=== PATIENT | female | born 1975 | race Two or more races ===

== ENCOUNTER 2016-12-05 04:25 | Emergency (ER) | payer OTHER ==
[~2016-12-05] VITALS: Ht 160 cm; Wt 61.2 kg
[2016-12-05 04:34] VITALS: BP 130/105
--- NOTE | 2016-12-05 04:35 | NUR ---
PT BB RA FROM HOME PT C/O GENERALIZED BODY PAIN, LAST TOOK EXCEDRIN 1 HR COOK PICKLED MEAT. PT AOX4 RR EVEN AND UNLABORED. NO SOB NOTED. NAD NOTED. NO NVD AT THIS TIME. PT PLACED ON MONITOR WAITING FOR MD ARRIAGA. PT NOTED WITH BUMP ON RIGHT FA. PT STATES SHE HAS HX OF MRSA.
--- NOTE | 2016-12-05 04:37 | NUR ---
DR. SMITH AT BEDSIDE FOR EVAL.
== END 2016-12-05 04:49 | disposition home or self-care (01) ==
LOC: ER 04:26
DX: L02.413 Cutaneous abscess of right upper limb (principal); I10 Essential (primary) hypertension
CPT/HCPCS: 99283; A4606; Z7610

== ENCOUNTER 2017-03-27 14:21 | Inpatient (IN) | payer OTHER ==
[~2017-03-27] VITALS: Ht 162.6 cm; Wt 60.8 kg
--- NOTE | 2017-03-27 14:40 | NUR ---
BIB RA, MOM CALLED 911, UNABLE TO AROUSE HER,UNK TABLETS SCATTERED AROUND HER BED, LETHARGIC, NAD NOTED, VSS, PUT ON HOSPITAL GOWN, AND MONITOR. MD AT BEDSIDE FOR BART
--- NOTE | 2017-03-27 14:41 | NUR ---
URINE COLLECTED. SENT TO LAB
[2017-03-27 14:56] LABS: APPEARANCE,URINE Clear (CLEAR); BILIRUBIN,URINE Negative (NEGATIVE); BLOOD, URINE Negative Ery/uL (NEGATIVE); COLOR,URINE Light yellow (YELLOW); KETONES,URINE Negative (NEGATIVE); LEUKOCYTE ESTERASE ,URINE Negative (NEGATIVE); NITRITE, URINE Negative (NEGATIVE); PH,URINE 5.5 (5.0-8.0); PROTEIN,URINE Negative (NEGATIVE); UGLUCOSE Negative (NEGATIVE); UROBILINOGEN,URINE 0.2 EU/dL (0.2)
[2017-03-27 14:57] LABS: HEMATOCRIT 44 % (33-45); HEMOGLOBIN 14.3 g/dL (11.5-14.8)
[2017-03-27 14:59] LABS: BASOPHILS # (AUTO) 0.1 /CMM (0.0-0.2); BASOPHILS % (AUTO) 1.1 % (0.0-2.0); EOSINOPHILS # (AUTO) 0.2 /CMM (0.0-0.7); EOSINOPHILS % (AUTO) 2.3 % (0.0-6.0); LYMPHOCYTES # (AUTO) 1.9 /CMM (0.8-4.8); LYMPHOCYTES % (AUTO) 25.5 % (20.0-44.0); MEAN CORPUSCULAR HEMOGLOBIN 27 PG (26.0-33.0); MEAN CORPUSCULAR HGB CONC 33 g/dl (31.0-36.0); MEAN CORPUSCULAR VOLUME 82 fL (82-100); MONOCYTES # (AUTO) 0.5 /CMM (0.1-1.30); MONOCYTES % (AUTO) 6.5 % (2.0-12.0); NEUTROPHILS # (AUTO) 4.9 /CMM (1.8-8.9); NEUTROPHILS % (AUTO) 64.6 % (43.0-81.0); PLATELET COUNT (AUTO) 484 /CMM (150-450); RDW COEFFICIENT OF VARIATION 13.9 (11.5-15.0); RED BLOOD CELL COUNT(AUTO) 5.32 MIL/uL (4.0-5.2); WHITE BLOOD COUNT (AUTO) 7.6 K/uL (4.3-11.0)
[2017-03-27 15:07] LABS: CALCIUM, SERUM 9.1 mg/dL (8.5-10.1); CARBON DIOXIDE 26 mmol/L (21-32); CHLORIDE 101 mmol/L (98-107); CREATININE 0.7 mg/dL (0.6-1.3); GLUCOSE 77 mg/dL (74-106); POTASSIUM 3.2 mmol/L (3.5-5.1); SODIUM SERUM 139 mmol/L (136-145); UREA NITROGEN, BLOOD 10 mg/dL (7-18)
[2017-03-27 15:21] LABS: ALANINE AMINOTRANSFERASE 18 U/L (12-78); ALBUMIN 4.4 g/dL (3.4-5.0); ALCOHOL, BLOOD < 3 mg/dL (0-0); ALKALINE PHOSPHATASE 102 U/L (46-116); ASPARTATE AMINOTRANSFERASE 22 U/L (15-37); BILIRUBIN,DIRECT 0.1 mg/dL (0.0-0.2); BILIRUBIN,TOTAL 0.3 mg/dL (0.2-1.0); TOTAL PROTEIN, SERUM 8.1 g/dL (6.4-8.2)
[2017-03-27 15:23] LABS: ACETAMINOPHEN 0 ug/ml (10-30); SALICYLATE 1.6 mg/dL (2.8-20.0)
--- NOTE | 2017-03-27 16:11 | NUR ---
Patient is resting comfortably in bed with eyes closed. Easily aroused. VSS
--- NOTE | 2017-03-27 16:27 | NUR ---
CALLED KRISHNA DIRECTOR PUBLIC POLICY ETA OF 1800
--- NOTE | 2017-03-27 18:06 | NUR ---
PINKY - CRISIS NURSE AT BEDSIDE
[2017-03-27] MEDS ORDERED: AMLO10TA2 PO (18:52)
[2017-03-27] MEDS ORDERED: LORA0.5T PO (18:52)
[2017-03-27] MEDS ORDERED: OMEP20TA68 PO (18:52)
[2017-03-27] MEDS ORDERED: ALPR0.5T8 PO (18:52)
--- NOTE | 2017-03-27 19:00 | NUR ---
SITTER AT BS. PT RESTING, VSS. FAMILY UPDATED WITH POC.
--- NOTE | 2017-03-27 19:48 | NUR ---
REPORT GIVEN TO AMADOU HARVEY FOR [id number].
--- NOTE | 2017-03-27 20:24 | NUR ---
TELE/RN RECEIVE PATIENT FROM [facility], PATIENT IS VERY LETHARGIC BUT AROUSABLE, ANSWERS SOME QUESTION BUT COULD NOT PROVIDE ANY HISTORY HENCE, I WAS NOT ABLE TO OBTAIN ADMISSION INFORMATIONS. PATIENT APPEARS NOT IN ANY DISTRESS, NO SIGNS OF PAIN, SITTER AT BEDSIDE. WILL MONITOR.
[2017-03-27 20:30] VITALS: BP 111/64
[2017-03-27] MEDS ORDERED: IV D5/0.45 NACL 1,000 ML IV PRN (20:38)
[2017-03-27 20:58] LABS: AMYLASE 50 U/L (25-115); LIPASE 133 U/L (73-393)
[2017-03-27 21:00] VITALS: BP 111/64
[2017-03-27] MEDS ORDERED: ACETAMINOPHEN 325 MG TABLET PO PRN (21:00)
[2017-03-27] MEDS ORDERED: ZOLPIDEM TARTRATE 5 MG TABLET PO PRN (21:00)
[2017-03-27] MEDS ORDERED: ONDANSETRON HCL/PF 4 MG/2 ML VIAL IVP PRN (21:00)
[2017-03-27] MEDS ORDERED: MAG HYDROX/AL HYDROX/SIMETH 30 ML UDC PO PRN (21:00)
[2017-03-27] MEDS ORDERED: Z GUARD REMEDY 2 OZ OINT TP PRN (21:00)
[2017-03-27] MEDS ORDERED: MAGNESIUM HYDROXIDE 30 ML UDC PO PRN (21:00)
[2017-03-27] MEDS ORDERED: HYDROCODONE/APAP 5/325MG 1 EACH TABLET PO PRN (21:00)
[2017-03-27] MEDS: POTASSIUM CL. PREMIX PERIPHER. 50 ML IV SCH ×2 (22:31→23:11)
[2017-03-28] VITALS: BP 108/65
[2017-03-28] MEDS: POTASSIUM CL. PREMIX PERIPHER. 50 ML IV SCH ×2 (00:29→01:40)
[2017-03-28] MEDS ORDERED: Thiamine 100 MG/ML VIAL ONE (01:47)
[2017-03-28] MEDS ORDERED: Folic acid 1 MG/0.2 ML VIAL ONE (01:48)
[2017-03-28] MEDS: Folic acid 1 MG in IV D5W 50 ML IV SCH (02:40)
[2017-03-28] MEDS: Thiamine 100 MG in IV D5W 50 ML IV SCH (03:35)
[2017-03-28 04:00] VITALS: BP 114/58
--- NOTE | 2017-03-28 06:23 | NUR ---
TELE/RN SLEEPING AROUSABLE, NO CHANGE IN CONDITION. ALL NEEDS ATTENDED AT THIS TIME. WILL CONTINUE TO MONITOR.
[2017-03-28 06:34] LABS: BASOPHILS % (AUTO) 0.4 % (0.0-2.0); HEMATOCRIT 42 % (33-45); HEMOGLOBIN 13.6 g/dL (11.5-14.8); LYMPHOCYTES # (AUTO) 1.5 /CMM (0.8-4.8); LYMPHOCYTES % (AUTO) 19.9 % (20.0-44.0); MEAN CORPUSCULAR HEMOGLOBIN 27 PG (26.0-33.0); MEAN CORPUSCULAR HGB CONC 33 g/dl (31.0-36.0); MEAN CORPUSCULAR VOLUME 84 fL (82-100); MONOCYTES # (AUTO) 0.6 /CMM (0.1-1.30); MONOCYTES % (AUTO) 8.3 % (2.0-12.0); NEUTROPHILS # (AUTO) 5.2 /CMM (1.8-8.9); NEUTROPHILS % (AUTO) 71.4 % (43.0-81.0); PLATELET COUNT (AUTO) 405 /CMM (150-450); RDW COEFFICIENT OF VARIATION 14.8 (11.5-15.0); RED BLOOD CELL COUNT(AUTO) 4.99 MIL/uL (4.0-5.2); WHITE BLOOD COUNT (AUTO) 7.3 K/uL (4.3-11.0)
[2017-03-28 06:59] LABS: INR 0.94 (0.87-1.13)
[2017-03-28 07:02] LABS: ALBUMIN 3.7 g/dL (3.4-5.0); BILIRUBIN,TOTAL 0.2 mg/dL (0.2-1.0); CALCIUM, SERUM 8.2 mg/dL (8.5-10.1); CREATININE 0.8 mg/dL (0.6-1.3); MAGNESIUM 2.6 mg/dL (1.8-2.4); PHOSPHORUS 4.9 mg/dL (2.5-4.9); POTASSIUM 3.6 mmol/L (3.5-5.1); THYROID STIMULATING HORMONE 0.265 uIU/mL (0.358-3.74); TOTAL PROTEIN, SERUM 7.5 g/dL (6.4-8.2)
[2017-03-28 07:15] LABS: APPEARANCE,URINE CLEAR (CLEAR); BILIRUBIN,URINE NEGATIVE (NEGATIVE); BLOOD, URINE TRACE Ery/uL (NEGATIVE); COLOR,URINE YELLOW (YELLOW); KETONES,URINE 1+ (NEGATIVE); LEUKOCYTE ESTERASE ,URINE NEGATIVE (NEGATIVE); NITRITE, URINE NEGATIVE (NEGATIVE); PROTEIN,URINE NEGATIVE (NEGATIVE); UGLUCOSE NEGATIVE (NEGATIVE); UROBILINOGEN,URINE 0.2 EU/dL (0.2)
[2017-03-28 07:17] LABS: BACTERIA,URINE Few /HPF (None Seen); WBC,URINE 0-2 /HPF (0-3)
--- NOTE | 2017-03-28 07:30 | NUR ---
RECEIVED PT. IN AM VS STABLE.GROGGY,BUT AROUSABLE.APPEARS COMFORTABLE.
[2017-03-28 08:00] VITALS: BP 119/60
--- NOTE | 2017-03-28 09:30 | NUR ---
MOTHER IN TO VISIT SUICIDE SCREENING QUESTIONNAIRE DONE WITH MOM PT.HAS A SEVERE HEARING PROBLEM.MOM TEARY EYED.
--- NOTE | 2017-03-28 11:30 | NUR ---
PT. MORE ALERT AND WAKING UP,CAT SCAN DONE.IV INFUSING NO COMPLAINTS OFFERED.
--- NOTE | 2017-03-28 12:28 | NUR ---
Social service consult requested by [facility] FAVIO Ortiz for substance abuse overdose. Pt. is a 41 year old female who was admitted to [facility] for an intentional overdose. JAY met with pt. and her mother Erum chadwick. Pt. is alert and oriented x 3. Pt. appears drowsy. According to pt's mother, pt. is and has five children. Two of the youngest children reside with pt's mother, two older children reside with their father and a 10 year old son resides with pt' s niece in [place]. Pt. lost custody of her children in June 2015. Pt's mother informed JAY that pt. resides alone in a [place] complex. Pt's 18 year old daughter wants to reside with the pt. Pt. has [employer] and SW to initiate IHSS application. Pt. receives approximately $850/ month in SSI. Pt. has a history of suicidal ideations. Pt. was placed on a psychiatric hold last year at [facility] for slitting her wrists. Pt. wears a hearing aide device, however she does not have them on her and is hard of hearing. Pt. informed JAY, she was depressed and intentionally took the pills. JAY inquired with pt. if she is suicidal at this time, Pt. declined, stating " not at this time". Pt. states she is having auditory hallucinations but when SW inquired what the voices are telling her, pt. shrugged her shoulders and said, " I don't know". Crisis rubber stamps and dies supervisor is not needed at this time, since pt. states she is not feeling suicidal. JAY has requested a psychiatric consult and per [facility] smelter charger Teddy, Dr. Feliz will see the pt. tomorrow. teleservices representative Deena Morillo was updated with the aforementioned information. Addendum: 03/28/17 at 1256 by SULAIMAN THOMPSON JAY contacted [facility] ( ) and submitted an [email or web address] application via phone for pt. [employer] application case #[id number].
--- NOTE | 2017-03-28 12:30 | NUR ---
SISTER IN TO VISIT,FAMILY SUPPORTIVE.CEDRIC DAUGHERTY RIPRAP PLACER IN TO SEE PT.
[2017-03-28] MEDS: PANTOPRAZOLE 40 MG TABLET.DR PO SCH (13:31)
[2017-03-28 16:00] VITALS: BP 124/65
--- NOTE | 2017-03-28 17:15 | NUR ---
MEDICATED WITH NORCO FOR NERVOUSNESS AND DISCOMFORT.
--- NOTE | 2017-03-28 19:30 | NUR ---
MS/RN RECEIVE PATIENT SLEEPING, EASILY AROUSABLE, APPEAR COMFORTABLE, NO SIGNS OF DISTRESS NOTED, CALL LIGHT IN REACH. SITTER AT BEDSIDE, WILL MONITOR.
[2017-03-28 20:00] VITALS: BP 111/64
[2017-03-29] MEDS: Folic acid 1 MG in IV D5W 50 ML IV SCH (00:56)
[2017-03-29] MEDS: Thiamine 100 MG in IV D5W 50 ML IV SCH (01:43)
--- NOTE | 2017-03-29 04:12 | NUR ---
MS/RN PATIENT JUST WOKE UP AT THIS TIME AND IS ALERT ORIENTED, COMFORTABLE, NO C/O PAIN, NO DISTRESS NOTED. SITTER AT BEDSIDE. WILL CONTINUE TO MONITOR.
[2017-03-29 06:00] VITALS: BP 144/78
--- NOTE | 2017-03-29 06:27 | NUR ---
MS/RN SLEEPING AT THIS TIME, AROUSABLE, APPEAR COMFORTABLE, NO DISTRESS NOTED. ALL NEEDS ATTENDED AT THIS TIME. WILL CONTINUE TO MONITOR.
[2017-03-29 07:43] LABS: BASOPHILS % (AUTO) 0.2 % (0.0-2.0); EOSINOPHILS # (AUTO) 0.2 /CMM (0.0-0.7); EOSINOPHILS % (AUTO) 2.4 % (0.0-6.0); HEMATOCRIT 39 % (33-45); HEMOGLOBIN 12.9 g/dL (11.5-14.8); LYMPHOCYTES # (AUTO) 1.8 /CMM (0.8-4.8); LYMPHOCYTES % (AUTO) 22.6 % (20.0-44.0); MEAN CORPUSCULAR HEMOGLOBIN 27 PG (26.0-33.0); MEAN CORPUSCULAR HGB CONC 33 g/dl (31.0-36.0); MEAN CORPUSCULAR VOLUME 83 fL (82-100); MONOCYTES # (AUTO) 0.6 /CMM (0.1-1.30); MONOCYTES % (AUTO) 7.5 % (2.0-12.0); NEUTROPHILS # (AUTO) 5.3 /CMM (1.8-8.9); NEUTROPHILS % (AUTO) 67.3 % (43.0-81.0); PLATELET COUNT (AUTO) 388 /CMM (150-450); RDW COEFFICIENT OF VARIATION 14.9 (11.5-15.0); RED BLOOD CELL COUNT(AUTO) 4.73 MIL/uL (4.0-5.2); WHITE BLOOD COUNT (AUTO) 7.8 K/uL (4.3-11.0)
[2017-03-29 07:49] LABS: CALCIUM, SERUM 8.4 mg/dL (8.5-10.1); CREATININE 1.4 mg/dL (0.6-1.3); POTASSIUM 3.1 mmol/L (3.5-5.1)
[2017-03-29 08:00] VITALS: BP 140/85
[2017-03-29] MEDS: PANTOPRAZOLE 40 MG TABLET.DR PO SCH (08:20)
[2017-03-29] MEDS: POTASSIUM CHLORIDE 20 MEQ TAB.PRT.SR PO SCH ×2 (11:08→12:08)
[2017-03-29] MEDS: IV NS 0.9% 1,000 ML IV PRN ×4 (11:42→20:58)
--- NOTE | 2017-03-29 11:56 | NUR ---
JAY met with pt's mom Erum bedside in pt's room and informed her that SW filed an IHSS application for the patient and gave pt's mother IHSS phone number ([phone]) and case # [id number].
--- NOTE | 2017-03-29 14:00 | NUR ---
POTASSIUM ORAL GIVEN FOR LOW POTASSIUM LEVEL.
[2017-03-29] MEDS ORDERED: IV NS 0.9% 500 ML IV ONE (15:00)
[2017-03-29 16:00] VITALS: BP 150/79
--- NOTE | 2017-03-29 16:30 | NUR ---
RECEIVED 500 ML BOLUS OF SALINE.DR. ALFRED IN TO SEE PT. ORDERS GIVEN.
--- NOTE | 2017-03-29 18:00 | NUR ---
MOTHER IN TO VISIT ALL DAY.RECEIVING IV AT RATE OF 150 PER HR.PT. VOIDING WELL.STEADY AMB. SITTER IN ROOM AT ALL TIMES.
[2017-03-29 20:00] VITALS: BP 147/86
--- NOTE | 2017-03-29 20:05 | NUR ---
RN INITIAL NOTES: RECEIVED REPORT FROM CJ HARVEY, PT IN BED, AWAKE, A/O X3 ON RA RESPIRATION EVEN AND UNLABORED, SITTER AT BED SIDE, PT HAS LEFT HAND G 18 PATENT AND FLUSHING WELL, INFUSING WITH NS AT 150ML/HR. SEEN BY DR ALFRED TODAY WITH ORDERS TO BE SEEN BY CRISIS TEAM ONCE MEDICALLY CLEARED, FOR NOW SINCE RENAL FUNCTION WERE THE PROBLEM, PER MD TO TREAT/RESOLVE THIS ISSUE FIRST BUT WILL BE CONTINUOUSLY BE FOLLOWED BY DR ALFRED. FAMILY AT BED SIDE. SAFETY PRECAUTIONS FOR FALL INITIATED CALL LIGHT IN REACH WILL CONTINUE TO MONITOR.
--- NOTE | 2017-03-29 20:15 | NUR ---
RN NOTES: PT STILL VOICING THAT SHE'S DEPRESSED AND STILL WANTING TO HURT HERSELF, HOWEVER THER'S NO SPECIFIC PLAN, SHE ALSO ADMIT TO HEARING VOICES BUT SHE STATED CANNOT CLEARLY HEAR WHAT THEY WERE SAYING, SITTER AT BED SIDE, ENCOURAGED PT TO EXPRESS HER FEELINGS, FAMILY AT BED SIDE, TALKING TO PT,
--- NOTE | 2017-03-29 20:30 | NUR ---
RN NOTES: PER PT'S MOTHER, PT'S HEARING AID WERE LEFT AT HOME, PT ISN'T USING ANY HEARING AID AT THIS HOSPITALIZATION
[2017-03-29] MEDS: MUPIROCIN OINT 2% 22 GM TUBE SCH (20:57)
[2017-03-29 21:00] VITALS: BP 136/80
[2017-03-30] MEDS: IV NS 0.9% 1,000 ML IV PRN (05:58)
--- NOTE | 2017-03-30 06:54 | NUR ---
RN CLOSING NOTES: PT IN BED, AWAKE, REMAINS A/O X3, ON RA DENIES ANY PAIN OR DISCOMFORT AT THIS TIME, LEFT HAND IV ACCESS REMAINS PATENT AND FLUSHING WELL, INFUSING WITH NS AT 150ML/HR. SCD IN PLACED, SITTER AT BED SIDE. VS REMAINS STABLE,NEEDS ATTENDED. SAFETY PRECAUTIONS FOR FALL REMAINS ENGAGED, CALL LIGHT IN REACH, WILL ENDORSE TO DAY RN FOR NITA.
[2017-03-30 07:00] LABS: CALCIUM, SERUM 8.9 mg/dL (8.5-10.1); CREATININE 0.5 mg/dL (0.6-1.3); POTASSIUM 4.4 mmol/L (3.5-5.1)
--- NOTE | 2017-03-30 07:40 | NUR ---
MS RN OPENING NOTE RECEIVED REPORT ON THE PATIENT. LIDIA IS ON CONTACT ISOLATION FOR MRSA IN NARES. PATIENT IS IN BED, AWAKE, WATCHING TV. 1:1 SITTER AT THE BEDSIDE. BED IS IN LOWEST POSITION, LOCKED, SIDE RAILS UP X 2. PATIENT IS ALERT AND ORIENTED x4, COOPERATIVE. DENIED SUICIDAL IDEATIONS, THOUGHTS OF HARMING SELF/OTHERS. STATED SHE FEELS MUCH BETTER. PRESENTS WITH NON LABORED BREATHING, CHEST RISES EQUALLY, BILATERALLY. DENIES ANY PAIN DISCOMFORT AT THIS TIME. IV INTACT AND PATENT. REMINDED PATIENT TO CALL FOR ASSISTANCE USING THE CALL LIGHT. CALL LIGHT AT THE BEDSIDE. PATIENT VERBALIZED UNDERSTANDING OF THE INFORMATION GIVEN. ALL NEEDS WITHIN REACH. ALL NEEDS ARE ATTENDED TO. WILL CONTINUE TO MONITOR.
[2017-03-30 08:00] VITALS: BP 129/78
[2017-03-30] MEDS: THIAMINE HCL 100 MG TABLET PO SCH (08:37)
[2017-03-30] MEDS: PANTOPRAZOLE 40 MG TABLET.DR PO SCH (08:37)
[2017-03-30] MEDS: FOLIC ACID 1 MG TABLET PO SCH (08:38)
[2017-03-30] MEDS: MUPIROCIN OINT 2% 22 GM TUBE SCH ×2 (08:38→21:28)
--- NOTE | 2017-03-30 08:46 | NUR ---
MS RN NOTE PATIENT'S IV CATHETER NOTED DISLODGED. WILL INSERT A NEW IV.
--- NOTE | 2017-03-30 09:02 | NUR ---
MS RN NOTE ATTEMPTTED TO INSERT IV ONCE UNSUCCESSFULLY. PATIENT ASKED TO COME BACK FOR THE SECOND ATTEMPT LITTLE LATER.
[2017-03-30] MEDS ORDERED: LORAZEPAM INJ 2 MG/ML VIAL IV PRN ×2 (12:30→18:46)
--- NOTE | 2017-03-30 13:14 | NUR ---
MS RN NOTE PER CEDRIC DAUGHERTY PATIENT NEEDS TO HAVE A MIDLINE INCRETION.
--- NOTE | 2017-03-30 13:17 | NUR ---
MS RN NOTE PATIENT IS MEDICALLY CLEARED. PER DR. ALFRED CALLING THE CRISIS TEAM.
--- NOTE | 2017-03-30 13:24 | NUR ---
MS RN NOTE SPOKE TO TO ERIKA CARTER FROM CRISIS MANAGEMENT TEAM. ERIKA STATED SHE WILL SEE THE PATIENT WITHIN NEXT TWO HOURS.
[2017-03-30] MEDS ORDERED: LORAZEPAM 0.5 MG TABLET PO PRN (19:00)
--- NOTE | 2017-03-30 19:25 | NUR ---
MS RN CLOSING NOTE RECEIVED REPORT ON THE PATIENT. LIDIA IS ON CONTACT ISOLATION FOR MRSA IN NARES. PATIENT IS IN BED, AWAKE, WATCHING TV. 1:1 SITTER AT THE BEDSIDE. BED IS IN LOWEST POSITION, LOCKED, SIDE RAILS UP X 2. PATIENT IS ALERT AND ORIENTED x4, COOPERATIVE. DENIED SUICIDAL IDEATIONS, THOUGHTS OF HARMING SELF/OTHERS. STATED SHE FEELS MUCH BETTER. PRESENTS WITH NON LABORED BREATHING, CHEST RISES EQUALLY, BILATERALLY. DENIES ANY PAIN DISCOMFORT AT THIS TIME. IV INTACT AND PATENT. REMINDED PATIENT TO CALL FOR ASSISTANCE USING THE CALL LIGHT. CALL LIGHT AT THE BEDSIDE. PATIENT VERBALIZED UNDERSTANDING OF THE INFORMATION GIVEN. ALL NEEDS WITHIN REACH. ALL NEEDS ARE ATTENDED TO. WILL ENDORSE TO SPORTS DEVELOPMENT OFFICER RN FOR NITA
[2017-03-30 19:41] VITALS: BP 130/79
--- NOTE | 2017-03-30 19:48 | NUR ---
MS GERALDINE INITIAL NOTES RECEIVED REPORT FROM AM NURSE DANIKA , SEEN PT IN BED AWAKE AND ALERT WATCHING TV AT THIS TIME. CALMED AND QUIET NO SUICIDAL IDEATION NOTED. DENIES ANY DISCOMFORT. KEPT HER SAFE AND COMFORTABLE AT ALL TIMES. STILL NO HEPLOCK AND PER AM NURSE MIDLINE NURSE COMING . WILL CONTINUE TO MONITOR.
--- NOTE | 2017-03-30 22:38 | NUR ---
HIDE MILL WORKER/NOTES PT RESTING AFTER SNACKS SERVED AND ROUTINE MEDS GIVEN. DENIES ANY SUICIDAL IDEATION . CALMED AND COOPERATIVE AT THIS TIME. KEPT HER COMFORTABLE AND SAFE AT ALL TIMES. WILL CONTINUE CLOSELY MONITORING FOR SAFETY.
--- NOTE | 2017-03-31 | NUR ---
COVERED BUTTON MAKER/NOTES PT WOKE UP WHEN SOMEONE CALLING TO HER CELLPHONE. CALMED AND INTERACT APPROPRIATELY.THEN AFTER SHE SPOKE TO THE SOMEBODY . TALKED TO THE PT AND CONVINCE HER IF POSSIBLE CAN WE PUT ANOTHER LINE WHILE STILL WAITING FOR MIDLINE NURSE. PT STATES "I DON'T LIKE IT ANY MORE TO PUT A NEW LINE THEY POKE ME 3 TIMES THIS MORNING AND ITS ALREADY TOO MUCH. SPOKE TO HER AND EXPLAINED TO HER WHY SHE NEEDS THE IVF TO BE INFUSED BY SHE STILL RESISTING NOT TO PUT ANOTHER LINE EVEN CHARGE NURSE BHARAT SPOKE TO HER TOO. SPOKE TO DR PRICE AND ORDERED TO D/C HEPLOCK AND IVF. WILL CONTINUE MONITORING.
--- NOTE | 2017-03-31 02:19 | NUR ---
MS TECHNICAL AIDE NOTES PT SLEEPING AT THIS TIME, BREATHING EVEN AND UNLABORED IN ROOM AIR. NO SIGNS OF ANY ACUTE DISTRESS NOTED. KEPT HER WARM AND COMFORTABLE AT ALL TIMES. WILL CONTINUE CLOSELY MONITORING.
--- NOTE | 2017-03-31 07:20 | NUR ---
MS EXTERNAL GRINDER TENDER CLOSING NOTES PT BACK TO SLEEP AFTER USING THE RESTROOM, NO SIGNS OF ANY SUICIDAL IDEATION NOTED, ATE AND DRINK WELL. STABLE INGRID THE NIGHT AND COOPERATIVE .CALMED AND INTERACT APPROPRIATELY. SLEPT WELL. KEPT HER WARM AND COMFORTABLE AT ALL TIMES.. ON FLAT BED WITH SIDE RAILS UP , BED LOW AND LOCK AND POSITION. ISOLATION PRECAUTION IMPLEMENTED AND OBSERVED. ENDORSE TO AM NURSE CONTINUITY OF CARE.SITTER AT THE BEDSIDE FOR PT SAFETY.
--- NOTE | 2017-03-31 07:30 | NUR ---
RN OPENING NOTES RECEIVED PATIENT ASLEEP, AROUSES EASILY. NO ACUTE DISTRESS, NO SOB NOTED. NO SUICIDAL IDEATION NOTED. SITTER ON BEDSIDE. NO IV SITE NOTED. KEPT PATIENT SAFE AND COMFORTABLE. BED IN LOW POSITION, LOCKED, CALL LIGHT IN REACH. WILL CONTINUE TO MONITOR ACCORDINGLY.
[2017-03-31 08:00] VITALS: BP 141/97
[2017-03-31] MEDS: THIAMINE HCL 100 MG TABLET PO SCH (08:30)
[2017-03-31] MEDS: FOLIC ACID 1 MG TABLET PO SCH (08:30)
[2017-03-31] MEDS: PANTOPRAZOLE 40 MG TABLET.DR PO SCH (08:31)
[2017-03-31] MEDS: MUPIROCIN OINT 2% 22 GM TUBE SCH (08:32)
[2017-03-31 10:09] LABS: CALCIUM, SERUM 9.1 mg/dL (8.5-10.1); CREATININE 0.7 mg/dL (0.6-1.3); POTASSIUM 3.5 mmol/L (3.5-5.1)
[2017-03-31 11:00] VITALS: BP 150/92
--- NOTE | 2017-03-31 11:15 | NUR ---
RN NOTES DISCHARGE PATIENT IN STABLE CONDITION, NO SUICIDAL IDEATION NOTED. ACCOMPANIED BY MOTHER AND RAVEN VILLARREAL. DISCHARGE TEACHING/INSTRUCTIONS/EXITCARE DONE. D/C PAPERWORK GIVEN TO MOTHER.
== END 2017-03-31 11:29 | disposition home or self-care (01) | DRG 812 ==
LOC: ER 14:27 → TELE 19:41 → MED 03-28 08:40
PROVIDERS: ADMIT Internal Medicine; ATTEND Internal Medicine
DX: T43.622A Poisoning by amphetamines, intentional self-harm, initial encounter (principal); N17.0 Acute kidney failure with tubular necrosis; G92 Toxic encephalopathy; R53.2 Functional quadriplegia; D68.59 Other primary thrombophilia; E87.6 Hypokalemia; F41.9 Anxiety disorder, unspecified; I10 Essential (primary) hypertension; H91.90 Unspecified hearing loss, unspecified ear; F33.3 Major depressive disorder, recurrent, severe with psychotic symptoms; F15.159 Other stimulant abuse with stimulant-induced psychotic disorder, unspecified; Y92.009 Unspecified place in unspecified non-institutional (private) residence as the place of occurrence of the external cause; T50.992A Poisoning by other drugs, medicaments and biological substances, intentional self-harm, initial encounter; T42.4X2A Poisoning by benzodiazepines, intentional self-harm, initial encounter
CPT/HCPCS: 36415; 70450-TC; 71010-TC; 80048-TC; 80053-TC; 80061-TC; 80076-TC; 80305; 81000-TC; 82150-TC; 82553-TC; 82746; 83540-TC; 83690-TC; 83735-TC; 84100-TC; 84443-TC; 84703-TC; 85025-TC; 85730-TC; 87040-TC; 87081-TC; 87086-TC; 93307-TC; A4606; G0480; J3411; J3480; J3490; J7030; J7060; Z7610

== ENCOUNTER 2018-04-20 10:41 | Emergency (ER) | payer OTHER ==
[~2018-04-20] VITALS: Ht 162.6 cm; Wt 67.1 kg
[~2018-04-20 10:41] MED LIST: ALPR0.5T8 PO; AMLO10TA6 PO; LORA0.5T PO; OMEP20TA5 PO
--- NOTE | 2018-04-20 11:00 | NUR ---
BIB RA AND [employer] OFFICERS, VERBALIZED SHE WANTED TO KILL HERSELF BY TAKING PILLS, REFUSING TO ANSWER QUESTIONS AT THIS TIME. BS 181. PT AAOX3, VSS. PT CALM & COOPERATIVE @ THIS TIME. GEOVANI OFFICERS @ BS & WILL CONT TO MONITOR.
[2018-04-20 11:24] LABS: BASOPHILS % (AUTO) 0.4 % (0.0-2.0); EOSINOPHILS % (AUTO) 0.6 % (0.0-6.0); HEMATOCRIT 45 % (33-45); HEMOGLOBIN 14.9 g/dL (11.5-14.8); LYMPHOCYTES # (AUTO) 1.9 /CMM (0.8-4.8); LYMPHOCYTES % (AUTO) 17.5 % (20.0-44.0); MEAN CORPUSCULAR HGB CONC 33 g/dl (31.0-36.0); MEAN CORPUSCULAR VOLUME 86 fL (82-100); MONOCYTES # (AUTO) 0.7 /CMM (0.1-1.30); MONOCYTES % (AUTO) 6.1 % (2.0-12.0); NEUTROPHILS % (AUTO) 75.4 % (43.0-81.0); PLATELET COUNT (AUTO) 400 /CMM (150-450); RED BLOOD CELL COUNT(AUTO) 5.26 MIL/uL (4.0-5.2); WHITE BLOOD COUNT (AUTO) 10.7 K/uL (4.3-11.0)
[2018-04-20] MEDS ORDERED: LORAZEPAM INJ 2 MG/ML VIAL ONE (11:25)
[2018-04-20] MEDS ORDERED: LORAZEPAM INJ 2 MG/ML VIAL IVP ONE (11:30)
[2018-04-20 11:32] LABS: CALCIUM, SERUM 8.8 mg/dL (8.5-10.1); CARBON DIOXIDE 27 mmol/L (21-32); CHLORIDE 103 mmol/L (98-107); CREATININE 0.8 mg/dL (0.6-1.3); GLUCOSE 124 mg/dL (74-106); POTASSIUM 3.1 mmol/L (3.5-5.1); SODIUM SERUM 140 mmol/L (136-145); UREA NITROGEN, BLOOD 8 mg/dL (7-18)
[2018-04-20 11:37] LABS: ALANINE AMINOTRANSFERASE 24 U/L (12-78); ALBUMIN 3.8 g/dL (3.4-5.0); ALCOHOL, BLOOD < 3 mg/dL (0-0); ALKALINE PHOSPHATASE 100 U/L (46-116); ASPARTATE AMINOTRANSFERASE 21 U/L (15-37); BILIRUBIN,DIRECT 0.2 mg/dL (0.0-0.2); BILIRUBIN,TOTAL 1.2 mg/dL (0.2-1.0); TOTAL PROTEIN, SERUM 7.5 g/dL (6.4-8.2)
--- NOTE | 2018-04-20 11:38 | NUR ---
MEDICATED PER ERMD ORDER.
[2018-04-20 11:40] LABS: ACETAMINOPHEN 0 ug/ml (10-30); SALICYLATE < 0.2 mg/dL (2.8-20.0)
--- NOTE | 2018-04-20 11:50 | NUR ---
CALLED ART INTERNATIONAL ACCOUNTANT
[2018-04-20] MEDS ORDERED: POTASSIUM CHLORIDE 20 MEQ TAB.PRT.SR PO ONE (12:30)
[2018-04-20] MEDS ORDERED: POTASSIUM CHLORIDE 20 MEQ POWDER PACKET ONE (12:35)
[2018-04-20] MEDS ORDERED: OLANZAPINE 5 MG TABLET PO ONE (14:30)
[2018-04-20] MEDS ORDERED: OLANZAPINE 5 MG/TAB.RAPDIS PO ONE (14:30)
--- NOTE | 2018-04-20 14:43 | NUR ---
extrusion engineer screening requested by Deena Morillo, customer service associate and Dr. Ocampo. The patient is a 42 year old female who was brought into the ER because the patient had verbalized that she wanted to kill herself by overdosing on pills. This quality analyst/technical writer met with the patient bedside. Patient at this time was responding to internal stimuli, stating that she see's angels in the room and that they are talking to her. When asked what they are saying, patient did not want to disclose. The patient expresses that she is frustrated and does not know why she is here. This quality analyst/technical writer spoke with the patient's mother (Erum Liriano-[phone]) who reported that the patient sent text messages stating to her and the family that she is hearing voices that are telling her to kill herself and that they should not have saved her last year after her suicidal overdose attempt. When questioned, patient denies this. Patient reports that she takes Xanax .5mg/day and medicine for her high blood pressure however reports that she has been non-compliant with her medication. 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 Patient's mood was from irritated/frustrated with bouts of paranoia- patient reported thinking mother and aunt were sabotaging her and trying to keep her further away from her children. Per mother, patient lost her parental rights and she is caring for her two younger children. Patient denied current suicidal/homicidal ideations but is responding to internal stimuli A/VH (talking to self/others that are not present). This quality analyst/technical writer communicated with Dr. Ocampo who will medicate the patient prior to being re-evaluated by Interior Decorator Painting. This quality analyst/technical writer also spoke with Pastry Cook Helper Deena Morillo who stated that she will communicate with calker that will come and see the patient. Suly Simms, VISION REHABILITATION THERAPIST [id number]
[2018-04-20 15:45] LABS: APPEARANCE,URINE CLEAR (CLEAR); BILIRUBIN,URINE NEGATIVE (NEGATIVE); BLOOD, URINE NEGATIVE Ery/uL (NEGATIVE); COLOR,URINE YELLOW (YELLOW); KETONES,URINE 1+ (NEGATIVE); LEUKOCYTE ESTERASE ,URINE NEGATIVE (NEGATIVE); NITRITE, URINE NEGATIVE (NEGATIVE); PROTEIN,URINE 1+ mg/dl (NEGATIVE); UGLUCOSE NEGATIVE (NEGATIVE)
[2018-04-20 15:51] LABS: BACTERIA,URINE 2+ /HPF (None Seen); RBC,URINE NONE SEEN /HPF (0-2); SQUAMOUS EPITHELIAL CELL,UR Few /HPF (None Seen)
[2018-04-20 15:52] LABS: HYALINE CASTS, URINE Moderate /LPF (None Seen); MUCUS,URINE Moderate /LPF (None Seen)
[2018-04-20] MEDS ORDERED: OLANZAPINE 5 MG TABLET ONE (19:21)
[2018-04-20 20:34] VITALS: BP 155/97
== END 2018-04-20 20:35 | disposition home or self-care (01) ==
LOC: ER 10:43
DX: R45.851 Suicidal ideations (principal); F31.9 Bipolar disorder, unspecified; Q16.1 Congenital absence, atresia and stricture of auditory canal (external); I10 Essential (primary) hypertension
CPT/HCPCS: 36415; 80048; 80076; 80305; 80329; 81001; 85025; 87086; 93005; 96374; 99285; A4606; G0480 ×2; J2060; Z7610; 81000-TC

== ENCOUNTER 2021-05-24 10:33 | Emergency (ER) | payer MEDICAID, OTHER ==
[~2021-05-24] VITALS: Ht 160 cm; Wt 62.1 kg
[~2021-05-24 10:33] MED LIST changes: +AMLO-213 PO; -AMLO10TA6 PO
--- NOTE | 2021-05-24 10:40 | NUR ---
called to triage,no answer
--- NOTE | 2021-05-24 10:45 | NUR ---
CALLED TO TRIAGE,NO ANSWER
--- NOTE | 2021-05-24 11:12 | NUR ---
CALLED TO TRIAGE,NO ANSWER
[2021-05-24] MEDS ORDERED: OLANZAPINE 10 MG VIAL IM ONE ×2 (11:30→11:42)
--- NOTE | 2021-05-24 11:30 | NUR ---
PT C/O hearing voices, denies SI/HI
--- NOTE | 2021-05-24 11:45 | NUR ---
URINE COLLECTED AND SENT TO LAB
[2021-05-24 11:53] LABS: BASOPHILS # (AUTO) 0.1 K/uL (0.0-0.2); EOSINOPHILS % (AUTO) 2.4 % (0.0-6.0); HEMATOCRIT 37 % (33-45); HEMOGLOBIN 11.8 g/dL (11.5-14.8); LYMPHOCYTES # (AUTO) 2.5 K/uL (0.8-4.8); LYMPHOCYTES % (AUTO) 22.6 % (20.0-44.0); MEAN CORPUSCULAR HGB CONC 32 g/dl (31.0-36.0); MEAN CORPUSCULAR VOLUME 83 fL (82-100); MONOCYTES % (AUTO) 9.5 % (2.0-12.0); NEUTROPHILS % (AUTO) 64.5 % (43.0-81.0); PLATELET COUNT (AUTO) 476 K/uL (150-450); RED BLOOD CELL COUNT(AUTO) 4.44 MIL/uL (4.0-5.2); WHITE BLOOD COUNT (AUTO) 10.9 K/uL (4.3-11.0)
[2021-05-24 12:02] LABS: BILIRUBIN,URINE NEGATIVE (NEGATIVE); COLOR,URINE YELLOW (YELLOW); LEUKOCYTE ESTERASE ,URINE SMALL (NEGATIVE); NITRITE, URINE NEGATIVE (NEGATIVE); PH,URINE 5.5 (5.0-8.0); PROTEIN,URINE NEGATIVE (NEGATIVE); UGLUCOSE NEGATIVE (NEGATIVE); UROBILINOGEN,URINE 0.2 EU/dL (0.2)
[2021-05-24 12:08] LABS: CALCIUM, SERUM 9.1 mg/dL (8.5-10.1); CARBON DIOXIDE 30 mmol/L (21-32); CHLORIDE 101 mmol/L (98-107); CREATININE 0.7 mg/dL (0.6-1.3); GLUCOSE 98 mg/dL (74-106); POTASSIUM 3.8 mmol/L (3.5-5.1); SODIUM SERUM 139 mmol/L (136-145); UREA NITROGEN, BLOOD 26 mg/dL (7-18)
[2021-05-24 12:10] LABS: BACTERIA,URINE 2+ /HPF (None Seen); HYALINE CASTS, URINE Moderate /LPF (None Seen); MUCUS,URINE Many /LPF (None Seen); RBC,URINE 0-2 /HPF (0-2); SQUAMOUS EPITHELIAL CELL,UR Moderate /HPF (None Seen)
[2021-05-24 12:20] LABS: ALANINE AMINOTRANSFERASE 25 U/L (12-78); ALBUMIN 3.5 g/dL (3.4-5.0); ALCOHOL, BLOOD < 3 mg/dL (0-0); ALKALINE PHOSPHATASE 100 U/L (46-116); ASPARTATE AMINOTRANSFERASE 16 U/L (15-37); BILIRUBIN,DIRECT 0.1 mg/dL (0.0-0.2); BILIRUBIN,TOTAL 0.3 mg/dL (0.2-1.0); TOTAL PROTEIN, SERUM 7.4 g/dL (6.4-8.2)
[2021-05-24 12:23] LABS: ACETAMINOPHEN 0 ug/ml (10-30)
[2021-05-24] MEDS ORDERED: OLAN2.5T3 PO (13:24)
--- NOTE | 2021-05-24 13:39 | NUR ---
PT WAS GIVEN AND UNDERSTOOD DISCHARGE INSTRUCTIONS AND PRESCRIPTION. VITAL SIGNS WITHIN NORMAL LIMITS. PATIENT IS STABLE.
[2021-05-24 13:40] VITALS: BP 133/86
== END 2021-05-24 13:39 | disposition home or self-care (01) ==
LOC: ER 10:35
DX: F20.9 Schizophrenia, unspecified (principal); I10 Essential (primary) hypertension; F32.9 Major depressive disorder, single episode, unspecified; F41.9 Anxiety disorder, unspecified; Z79.899 Other long term (current) drug therapy
CPT/HCPCS: 36415; 80048; 80076; 80143; 80307; 80320; 81001; 85025; 87086; 96372; 99283; J3490; G0480

== ENCOUNTER 2021-07-16 16:44 | Emergency (ER) | payer MEDICAID ==
[~2021-07-16] VITALS: Ht 160 cm; Wt 63.5 kg
[~2021-07-16 16:44] MED LIST changes: +OLAN2.5T3 PO
[2021-07-16 18:16] VITALS: BP 157/89
[2021-07-16] MEDS ORDERED: KETOROLAC TROMETHAMINE INJ 60 MG/2 ML VIAL IM ONE (19:30)
[2021-07-16] MEDS ORDERED: KETOROLAC TROMETHAMINE INJ 30 MG/ML VIAL ONE (19:46)
[2021-07-16] MEDS ORDERED: IBUP-1955 PO (20:05)
== END 2021-07-16 20:17 | disposition home or self-care (01) ==
LOC: ER 16:48
DX: U07.1 COVID-19 (principal); F31.9 Bipolar disorder, unspecified; F41.9 Anxiety disorder, unspecified; Z79.899 Other long term (current) drug therapy
CPT/HCPCS: 84703; 87426; 96372; 99283; C9803; J1885

== ENCOUNTER 2021-07-30 17:14 | Emergency (ER) | payer MEDICAID ==
[~2021-07-30] VITALS: Ht 157.5 cm; Wt 61.7 kg
[~2021-07-30 17:14] MED LIST changes: +IBUP-1955 PO
--- NOTE | 2021-07-30 17:45 | NUR ---
CALLED IN ED WAITING ROOM. NO RESPONSE.
[2021-07-30 18:18] VITALS: BP 132/84
[2021-07-30] MEDS ORDERED: ACETAMINOPHEN 325 MG TABLET ONE (18:51)
[2021-07-30] MEDS ORDERED: ACETAMINOPHEN 325 MG TABLET PO ONE (19:00)
== END 2021-07-30 19:20 | disposition home or self-care (01) ==
LOC: ER 17:15
DX: M79.671 Pain in right foot (principal); M79.672 Pain in left foot; Z72.821 Inadequate sleep hygiene; R51.9 Headache, unspecified; F20.9 Schizophrenia, unspecified; F32.9 Major depressive disorder, single episode, unspecified; F41.9 Anxiety disorder, unspecified; I10 Essential (primary) hypertension; Z79.899 Other long term (current) drug therapy

== ENCOUNTER 2021-08-17 20:05 | Emergency (ER) | payer MEDICAID ==
[~2021-08-17] VITALS: Ht 160 cm; Wt 59.0 kg
[2021-08-17 22:41] VITALS: BP 128/75
[2021-08-17] MEDS ORDERED: NAPR-1192 PO (22:46)
--- NOTE | 2021-08-17 22:53 | NUR ---
Patient discharged to home in stable condition. Written and verbal after care instructions given. Patient verbalizes understanding of instruction. Pt ambulatory with a steady gait
== END 2021-08-17 22:56 | disposition home or self-care (01) ==
LOC: ER 20:10
DX: M79.10 Myalgia, unspecified site (principal); I10 Essential (primary) hypertension; F32.9 Major depressive disorder, single episode, unspecified; F41.9 Anxiety disorder, unspecified; Z79.1 Long term (current) use of non-steroidal anti-inflammatories (NSAID); Z79.52 Long term (current) use of systemic steroids; Z79.899 Other long term (current) drug therapy

== ENCOUNTER 2022-02-27 14:33 | Emergency (ER) | payer MEDICAID ==
[~2022-02-27] VITALS: Ht 160 cm; Wt 61.2 kg
[~2022-02-27 14:33] MED LIST changes: +NAPR-1192 PO
[2022-02-27 14:43] VITALS: BP 130/79
[2022-02-27] MEDS ORDERED: IBUP-1957 PO (14:59)
[2022-02-27] MEDS ORDERED: CYCL5TAB PO (14:59)
[2022-02-27] MEDS ORDERED: KETOROLAC TROMETHAMINE INJ 30 MG/ML VIAL IM ONE (15:00)
[2022-02-27] MEDS ORDERED: CYCLOBENZAPRINE 10 MG TABLET PO ONE (15:00)
[2022-02-27] MEDS ORDERED: KETOROLAC TROMETHAMINE INJ 30 MG/ML VIAL ONE (15:04)
[2022-02-27] MEDS ORDERED: CYCLOBENZAPRINE 10 MG TABLET ONE (15:05)
--- NOTE | 2022-02-27 15:12 | NUR ---
Pt asking for food- Lunch given Tolerated well ate 100% . Patient discharged to home in stable condition. Written and verbal after care instructions given. Patient verbalizes understanding of instruction.
--- NOTE | 2022-02-27 15:28 | NUR ---
Patient discharged to home in stable condition. Written and verbal after care instructions given. Patient verbalizes understanding of instruction.
== END 2022-02-27 15:28 | disposition home or self-care (01) ==
LOC: ER 15:14
DX: G89.29 Other chronic pain (principal); I10 Essential (primary) hypertension; F32.A Depression, unspecified; F41.9 Anxiety disorder, unspecified; Z79.899 Other long term (current) drug therapy
CPT/HCPCS: 99283; 96372; J1885